=== PATIENT | female | born 1945 | race Caucasian/White ===

== ENCOUNTER 2019-08-07 08:58 | Outpatient (CLI) | payer MEDICARE, MEDICAID, SELFPAY ==
--- NOTE | 2019-08-07 09:05 | MM_ITS ---
WS: [id number] BILATERAL DIGITAL SCREENING MAMMOGRAPHY WITH CAD CLINICAL INFORMATION: SCREENING HISTORY: Screening mammogram. No current complaints. COMPARISON: TECHNIQUE: Bilateral CC and MLO views. FINDINGS: Scattered fibroglandular densities bilaterally. No suspicious focal mass, asymmetry, calcifications, or architectural distortion. No evidence of malignancy. MM/[place] [id number] IMPRESSION: BI-RADS: 1-Negative FOLLOW UP: 1 Year Follow-up Recommend return to annual screening mammography.
== END 2019-08-07 08:59 | disposition home or self-care (01) ==
LOC: RADSHAW 09:03
PROVIDERS: Visit Provider Family Medicine
DX: Z12.31 Encounter for screening mammogram for malignant neoplasm of breast (principal)
CPT/HCPCS: 77067

== ENCOUNTER 2020-09-13 09:06 | Outpatient (CLI) | payer MEDICARE, MEDICAID, SELFPAY ==
--- NOTE | 2020-09-13 09:15 | MM_ITS ---
WS: [id number] Exam: [place] [id number] Date/Time of Exam: 09/13/2020 9:18 AM Reason For Exam: SCREENING VIEWS: MLO and CC views both breasts. Comparison made with prior exam of 04/12/2012. Findings: There was no sign of mass, architectural distortion or suspicious calcification in either breast. Sc attered fibroglandular densities MM/[place] [id number] Impression: BI-RADS: 2-Benign FOLLOW-UP: 1 Year Follow-up This mammogram was also analyzed by the Computer Aided Detection System R2 [employer].
== END 2020-09-13 09:07 | disposition home or self-care (01) ==
LOC: RADSHAW 09:08
PROVIDERS: PCP Family Medicine; Visit Provider Family Medicine
DX: Z12.31 Encounter for screening mammogram for malignant neoplasm of breast (principal)
CPT/HCPCS: 77067

== ENCOUNTER 2020-09-15 10:37 | Emergency (ER) | payer MEDICARE, MEDICAID, SELFPAY ==
[2020-09-15 10:38] VITALS: PULSE 94; RESP 16; BMI 23.2
--- NOTE | 2020-09-15 10:47 | XR_ITS ---
WS: [id number] Exam: XR ribs LT mn 3V w CXR1V [id number] Date/Time of Exam: 09/15/2020 10:55 AM Reason For Exam: fall/rib pain No acute left rib fracture or pneumothorax. No pleural or pulmonary reactive changes. The lungs are b ilaterally clear and fully expanded. Normal cardiomediastinal structures. There is significant bony r esorption and remodeling of the proximal humeri with chronic dislocations. This may be related to rhe umatoid arthritis. XR/XR ribs LT mn 3V w CXR1V [id number] IMPRESSION: 1. No acute rib fracture or pneumothorax.
--- NOTE | 2020-09-15 10:47 | CT_ITS ---
WS: [id number] CT CERVICAL SPINE HISTORY: fall TECHNIQUE: Contiguous 2.5 mm axial imaging performed through the entire cervical spine. Sagittal and coronal reformats also performed. All CT scans at [facility] use at least one of these do se optimization techniques: automated exposure control; mA and/or kV adjustment per patient size (inc ludes targeted exams where dose is matched to clinical indication); or iterative reconstruction. DLP: 383.03 mGy.cm COMPARISON: None available. Increase in the cervical lordosis. C5 anterolisthesis by 4 mm. Advanced degenerative disc disease at C5-6. No acute fracture is identified. The lateral masses are aligned and the odontoid is intact. No cervical spine fractures are identified. Moderate to severe bilateral facet joint arthritis result ing in foraminal narrowing. Most significant stenosis at C5-6 and C6-7. Moderate calcification in the aortic arch into the carotid arteries. There is a nodule in the inferio r RIGHT thyroid extends substernal. Probably due to a goiter. Lung apices are clear. CT/CT cervical spin wo con* [id number] IMPRESSION: 1. No acute cervical spine fracture is identified. 2. C5 anterolisthesis by 4 mm May be degenerative. No facet joint displacement is appreciated. 3. Multilevel bilateral facet joint arthritis. Advanced cervical spondylosis.
--- NOTE | 2020-09-15 10:47 | CT_ITS ---
WS: [id number] CT HEAD NONCONTRAST HISTORY: trauma TECHNIQUE: Contiguous axial imaging performed through the brain in 2.5 mm imaging. Bone and soft tiss ue windows. Sagittal and coronal reformats reviewed. All CT scans at [facility] use at ast one of these dose optimization techniques: automated exposure control; mA and/or kV adjustment pe r patient size (includes targeted exams where dose is matched to clinical indication); or iterative r econstruction. DLP: 765.1 mGy.cm COMPARISON: 05/05/2015 No acute intracranial hemorrhage, midline shift or mass effect. Bilateral frontal lobe atrophy is unchanged. There is moderate chronic microvascular ischemic disease . Bilateral lacunar infarcts in the internal capsules. Ventricles: Normal size with no hydrocephalus. Moderate amount of calcified plaque within the intracranial carotid arteries extending into the proxi mal LEFT MCA. Paranasal sinuses: As visualized are clear. Mastoid air cells: Well pneumatized. Calvarium and scalp: Skull is intact with no soft tissue edema or swelling. CT/CT head wo con* [id number] IMPRESSION: 1. No acute intracranial hemorrhage or edema. 2. Moderate bifrontal lobe atrophy and microvascular disease with lacunar infa rcts as above. No change.
--- NOTE | 2020-09-15 10:48 | ED_ITS ---
HPI - Fall General: Chief Complaint: Fall Stated Complaint: L EYEBROW LAC AFTER FALL Time Seen by Provider: 09/15/20 10:47 Source: patient and EMS Mode of arrival: EMS Limitations: no limitations History of Present Illness: HPI Narrative: Patient is a 75-year-old female who presents to ED today via EMS for evaluation following a fall. Patient tells me she was walking on the concrete sidewalk with bags when she accidentally stumbled and fell. Patient states she struck the left frontal scalp sustaining a laceration near her eyebrow. Patient also complains of some left rib pain. She denies chest pain, shortness of breath, difficulty breathing. No abdominal pain. Patient tells me last tetanus was approximately a month ago. She denies LOC. Denies neck or back pain. She is not having any hip or lower extremity pain. MD complaint: fall Onset (ago): minute(s) Fall from: standing Fall witnessed: yes, by bystander Place fall occurred: street Loss of consciousness: None Prolonged down time: no Symptoms prior to fall: none Context: tripped/slipped (stumbled ) Location of injury: head and chest Associated symptoms-after fall: Reports no associated symptoms and chest pain (chest wall pain; L rib pain); Denies abdominal pain, difficulty walking, headache(s), lightheadedness or neck pain Review of Systems Const: Denies: fever(s) Eyes: Denies: change in vision or blurry vision Card: Reports: chest pain (chest wall pain; L rib pain); Denies: lightheadedness, syncope or pre-syncope Resp: Denies: dyspnea GI: Denies: abdominal pain, nausea or vomiting Musc: Denies: neck pain, back pain, extremity pain, extremity swelling, joint pain or joint swelling Skin/Breast: Reports: other (laceration near L eyebrow) Neuro: Denies: headache(s), numbness in extremities, lack of coordination, difficulty walking or dizziness Physical Exam Const: COMMON NORMALS: no acute distress, average body habitus, patient oriented x3, no limitations, healthy appearing, alert and well nourished GENERAL APPEARANCE: cooperative ORIENTATION/CONSCIOUSNESS: Yes awake, Yes oriented to person, Yes oriented to place and Yes oriented to time HENMT: COMMON NORMALS: normocephalic HEAD & SCALP: normocephalic and other (small 1cm laceration to lateral L eyebrow; bleeding controlled ) FACE & SINUS: normal facial exam Eye: COMMON NORMALS: Equal, round and reactive pupils present and EOMs intact bilaterally GENERAL EYE: appearance normal, both eyes and all related structures PUPIL: Yes Equal, round and reactive pupils present Neck/C-Spine: COMMON NORMALS: full ROM CERVICAL SPINE: Yes cervical ROM normal, No pain with cervical ROM, No Cervical spine tenderness and No Paracervical muscle tenderness Chest: COMMONS NORMALS: normal inspection of the chest CHEST: Yes other (TTP L lower anterior ribs; no crepitus noted) Resp: COMMON NORMALS: normal respiratory effort and clear to auscultation bilaterally AUSCULTATION: clear to auscultation bilaterally OTHER: normally wears 2L O2 for her emphysema Cardio: COMMON NORMALS: regular rate and regular rhythm RATE: regular rate RHYTHM: regular rhythm GI: COMMON NORMALS: Normal to inspection, nondistended, normoactive bowel sounds present, Soft to palpation, non-tender, No hepatosplenomegaly present and no masses PALPATION: Yes Soft to palpation and Yes No hepatosplenomegaly present Back/Pelvis: COMMON NORMALS: thoracic and lumbar spine normal to inspection, no thoracic nor lumbar tenderness and thoraco-lumbar ROM normal Extremity: COMMON NORMALS: normal to inspection and full ROM GENERAL: Yes normal exam except as noted Neuro: YI COMA SCALE: document GCS findings [place] coma scale eye opening: Spontaneous Yi coma scale verbal response: Orientated [place] coma scale motor response: Obey commands Yi coma scale total score: 15 COMMON NORMALS: patient oriented x3, CN's II-XII intact bilaterally, moves all extremities, no focal motor deficits and no sensory deficits noted SENSORIUM/ORIENTATION: Yes alert, Yes oriented to person, Yes oriented to place and Yes oriented to time Skin: TRAUMA: no abrasions and laceration (L eyebrow) Procedures Laceration Laceration 1: Site: face Side (If applicable): left Size (cm): 1.0 Description: linear Depth: simple, single layer Local Anesthetic: lidocaine 2% Amount of anesthesia used (mL): 1.0 Pre-repair: wound explored and irrigated extensively Skin layer closed with: nylon Size (cm): 5-0 Number of sutures: 2 Technique: simple, interrupted Course Vital Signs: Vital signs: Vital Signs Pulse Rate 78 03/24/21 12:00 Respiratory Rate 18 09/15/20 12:43 Blood Pressure 137/49 09/15/20 12:00 Pulse Oximetry 96 09/15/20 12:43 MDM - Fall MDM Narrative: Medical decision making narrative: Patient's imaging is negative. She had no problems with her ambulation trial. We will give her pain medications for her left rib contusions. Small facial laceration was repaired as documented. Tetanus is up-to-date. Return to ED precautions given. Imaging Data^: CT Head: Radiologist's impression: [address] [place] [address] CT Scan Report Signed Patient: Lima Portillo Unit #: [id number] : 1945 Age/Sex: 75 / F ADM Date: 09/15/20 Loc: ER Room/Bed: Attending Dr: Ordering Provider/Ordering MD: Destini Duenas Date of Service: 09/15/20 Procedure(s): CT head wo con* [id number] Accession Number(s): [id number] Report Number: [id number] WS: [id number] CT HEAD NONCONTRAST HISTORY: trauma TECHNIQUE: Contiguous axial imaging performed through the brain in 2.5 mm imaging. Bone and soft tissue windows. Sagittal and coronal reformats reviewed. All CT scans at [facility] use at least one of these dose optimization techniques: automated exposure control; mA and/or kV adjustment per patient size (includes targeted exams where dose is matched to clinical indication); or iterative reconstruction. DLP: 765.1 mGy.cm COMPARISON: 05/05/2015 No acute intracranial hemorrhage, midline shift or mass effect. Bilateral frontal lobe atrophy is unchanged. There is moderate chronic microvascular ischemic disease. Bilateral lacunar infarcts in the internal capsules. Ventricles: Normal size with no hydrocephalus. Moderate amount of calcified plaque within the intracranial carotid arteries extending into the proximal LEFT MCA. Paranasal sinuses: As visualized are clear. Mastoid air cells: Well pneumatized. Calvarium and scalp: Skull is intact with no soft tissue edema or swelling. CT/CT head wo con* [id number] IMPRESSION: 1. No acute intracranial hemorrhage or edema. 2. Moderate bifrontal lobe atrophy and microvascular disease with lacunar infarcts as above. No change. Dictated By: Evelia Law DO Signed By: Evelia Law DO Signed Date/Time: 09/15/20 1140 DD/ 1138 XR L ribs/CXR: Radiologist's impression: [place] [address] XRay Report Signed Patient: Lima PortilloUnit #: [id number] : 1945cct#:[id number] Age/Sex: 75 / FADM Date: 09/15/20 Loc: ERRoom/Bed: Attending Dr: Ordering Provider/Ordering MD: Destini Duenas Date of Service: 09/15/20 Procedure(s): XR ribs LT mn 3V w CXR1V [id number] Accession Number(s): [id number] Report Number: [id number] WS: [id number] Exam: XR ribs LT mn 3V w CXR1V [id number] Date/Time of Exam: 09/15/2020 10:55 AM Reason For Exam: fall/rib pain No acute left rib fracture or pneumothorax. No pleural or pulmonary reactive changes. The lungs are bilaterally clear and fully expanded. Normal cardiomedi astinal structures. There is significant bony resorption and remodeling of the proximal humeri with chronic dislocations. This may be related to rheumatoid arthritis. XR/XR ribs LT mn 3V w CXR1V 69609 IMPRESSION: 1. No acute rib fracture or pneumothorax. Dictated By:Ghanshyam Calles DO Signed By:Finesse Pritchett Date/Time:09/15/20 1144 DD/ 1142 CT cervical : Radiologist's impression: [address] [address] [address] Scan Report Signed Patient: Lima Portillo Unit #: [id number] : 1945 Age/Sex: 75 / F ADM Date: 09/15/20 Loc: ER Room/Bed: Attending Dr: Ordering Provider/Ordering MD: Destini Duenas Date of Service: 09/15/20 Procedure(s): CT cervical spin wo con* [id number] Accession Number(s): [id number] Report Number: [id number] WS: [id number] CT CERVICAL SPINE HISTORY: fall TECHNIQUE: Contiguous 2.5 mm axial imaging performed through the entire cervical spine. Sagittal and coronal reformats also performed. All CT scans at [facility] use at least one of these dose optimization techniques: automated exposure control; mA and/or kV adjustment per patient size (includes targeted exams where dose is matched to clinical indication); or iterative reconstruction. DLP: 383.03 mGy.cm COMPARISON: None available. Increase in the cervical lordosis. C5 anterolisthesis by 4 mm. Advanced degenerative disc disease at C5-6. No acute fracture is identified. The lateral masses are aligned and the odontoid is intact. No cervical spine fractures are identified. Moderate to severe bilateral facet joint arthritis resulting in foraminal narrowing. Most significant stenosis at C5-6 and C6-7. Moderate calcification in the aortic arch into the carotid arteries. There is a nodule in the inferior RIGHT thyroid extends substernal. Probably due to a goiter. Lung apices are clear. CT/CT cervical spin wo con* [id number] IMPRESSION: 1. No acute cervical spine fracture is identified. 2. C5 anterolisthesis by 4 mm May be degenerative. No facet joint displacement is appreciated. 3. Multilevel bilateral facet joint arthritis. Advanced cervical spondylosis. Dictated By: Evelia Law DO Signed By: Evelia Law DO Signed Date/Time: 09/15/20 1145 DD/ 1141 Discharge Plan Discharge Patient Disposition: Home Clinical Impression: Fall from slip, trip, or stumble Qualifiers: Encounter type: initial encounter Qualified Code(s): W01.0XXA - Fall on same level from slipping, tripping and stumbling without subsequent striking against object, initial encounter Eyebrow laceration Qualifiers: Encounter type: initial encounter Laterality: left Qualified Code(s): S01.112A - Laceration without foreign body of left eyelid and periocular area, initial encounter Contusion of rib on left side Qualifiers: Encounter type: initial encounter Qualified Code(s): S20.212A - Contusion of left front wall of thorax, initial encounter Condition: Stable Prescriptions: New hydrocodone-acetaminophen 5-325 mg tablet 1 tab PO Q6H PRN (Reason: pain) Qty: 14 RF: 0 No Action celecoxib 200 mg Capsule 200 mg PO DAILY@08 RF: 0 acetaminophen 325 mg Tablet 650 mg PO BID PRN (Reason: Pain) RF: 0 ipratropium-albuterol 0.5 mg-3 mg(2.5 mg base)/3 mL Solution For Nebulization 3 ml INHALATION Q4H PRN (Reason: Shortness Of Breath) RF: 0 trazodone 50 mg Tablet 50 mg PO DAILY@20 RF: 0 atorvastatin 10 mg Tablet 10 mg PO DAILY@20 RF: 0 Robafen DM 10-100 mg/5 mL Syrup 20 ml PO Q6H PRN (Reason: Cough) RF: 0 Ultram 50 mg Tablet 50 mg PO TID@08,12,20 RF: 0 Protonix 40 mg Tablet,Delayed Release (Dr/Ec) 40 mg PO BID@08,20 RF: 0 lisinopril 10 mg Tablet 10 mg PO DAILY@08 RF: 0 Nicoderm CQ 21 mg/24 hr Patch 24 Hour 1 patch TRANSDERMAL DAILY@08 RF: 0 montelukast 10 mg Tablet 10 mg PO DAILY@08 RF: 0 gabapentin 100 mg Capsule 100 mg PO BID@08,20 RF: 0 Ventolin HFA 90 mcg/actuation Hfa Aerosol Inhaler 2 puff INHALATION Q4H RF: 0 duloxetine 30 mg Capsule,Delayed Release(Dr/Ec) 30 mg PO DAILY@08 RF: 0 Symbicort 80-4.5 mcg/actuation Hfa Aerosol Inhaler 2 puff INHALATION BID@08,20 RF: 0 diclofenac sodium 1 % Gel See Rx Instructions .ROUTE .COMPLEX RF: 0 Discharge Orders: Discharge ED (Routine); Ordered 09/15/20 Ordered By: Destini Duenas Referrals: Jennifer Styles MD [Primary Care Provider] - Patient Instructions: Laceration (ED), Opioid Safety Activity Restrictions/Additional Instructions: [facility] is committed to fighting the nationwide opiate epidemic. We are providing ALL patients with information regarding opiate safety. If you received opiate pain medication during your stay or if you received a prescription for opiate pain medication-please review this handout. If not, you may disregard. Thank you. As we discussed I do not want you taking your tramadol along with the hydrocodone. If you feel you need stronger medication take the hydrocodone but avoid taking them together. Clean the laceration with warm soap and water several times daily. Sutures need to be cut out in 5 days. Return to the emergency department for severe pain, shortness of breath, difficulty breathing or any other concerns you may have. I hope you begin to feel better soon. Coding Level of Care Code ED Dyno Technician for Natalee Fwcolette Exam Comprehensive
[2020-09-15 12:00] VITALS: BP 137/49; PULSE 78; RESP 18; O2SAT 98
[2020-09-15 12:43] VITALS: RESP 18; O2SAT 96
[2020-09-15] MEDS: ondansetron 2 mg/ML SDV 2 mL 4 MG IM (12:43)
[2020-09-15] MEDS: morphine 4 mg/mL SDV 1 mL IM (12:43)
[2020-09-15 13:12] VITALS: BP 136/63; PULSE 79; RESP 20; O2SAT 92
== END 2020-09-15 13:06 | disposition home or self-care (01) ==
PROVIDERS: Emergency Provider Physician Assistant; PCP Family Medicine
DX: S01.112A Laceration without foreign body of left eyelid and periocular area, initial encounter (principal); S20.212A Contusion of left front wall of thorax, initial encounter; W01.10XA Fall on same level from slipping, tripping and stumbling with subsequent striking against unspecified object, initial encounter
CPT/HCPCS: 12011; 70450; 71101; 72125; 96372; 99284; J2270; J2405

== ENCOUNTER 2021-11-09 12:50 | Outpatient (CLI) | payer MEDICARE, MEDICAID, SELFPAY ==
--- NOTE | 2021-11-09 12:59 | MM_ITS ---
WS: [id number] BILATERAL 3D TOMOSYNTHESIS DIGITAL SCREENING MAMMOGRAPHY WITH CAD CLINICAL INFORMATION: SCREENING HISTORY: Screening mammogram. No current complaints. COMPARISON: September 13, 2020 TECHNIQUE: Bilateral CC and MLO views. FINDINGS: Scattered fibroglandular densities bilaterally. Punctate calcifications LEFT breast. Vascular calcifi cation. No suspicious focal mass, asymmetry, calcifications, or architectural distortion. No evidence of malignancy. MM/[place] [id number] IMPRESSION: BI-RADS: 2-Benign FOLLOW UP: 1 Year Follow-up Recommend return to annual screening mammography.
== END 2021-11-09 12:51 | disposition home or self-care (01) ==
LOC: RAD 12:53
PROVIDERS: PCP Family Medicine; Visit Provider Family Medicine
DX: Z12.31 Encounter for screening mammogram for malignant neoplasm of breast (principal)
CPT/HCPCS: 77063; 77067

== ENCOUNTER → 2022-09-05 09:50 | Outpatient (BNVA) | payer MEDICARE, MEDICAID, SELFPAY | PROVIDERS: PCP Family Medicine; Visit Provider Nurse Practitioner Women's Health | DX: N95.0 Postmenopausal bleeding (principal) | CPT/HCPCS: 87624 ==

== ENCOUNTER 2022-11-13 15:01 | Outpatient (CLI) | payer MEDICARE, MEDICAID, SELFPAY ==
--- NOTE | 2022-11-13 15:12 | MM_ITS ---
WS: [id number] BILATERAL 3D TOMOSYNTHESIS DIGITAL SCREENING MAMMOGRAPHY WITH CAD CLINICAL INFORMATION: SCREENING HISTORY: Screening mammogram. No current complaints. COMPARISON: 2021 TECHNIQUE: Bilateral CC and MLO views. FINDINGS: Scattered fibroglandular densities bilaterally. No suspicious focal mass, asymmetry, calcifications, or architectural distortion. No evidence of malignancy. Incidental punctate calcifications. Vascular calcification. MM/[place] [id number] IMPRESSION: BI-RADS: 2-Benign FOLLOW UP: 1 Year Follow-up Recommend return to annual screening mammography.
== END 2022-11-13 15:02 | disposition home or self-care (01) ==
PROVIDERS: PCP Family Medicine; Visit Provider Family Medicine
DX: Z12.31 Encounter for screening mammogram for malignant neoplasm of breast (principal)
CPT/HCPCS: 77063; 77067

== ENCOUNTER 2023-12-07 13:50 | Outpatient (CLI) | payer MEDICARE, MEDICAID, SELFPAY ==
--- NOTE | 2023-12-07 13:59 | MM_ITS ---
WS: [id number] BILATERAL 3D TOMOSYNTHESIS DIGITAL SCREENING MAMMOGRAM WITH CAD CLINICAL INFORMATION: SCREENING HISTORY: Screening mammogram. No current complaints. COMPARISON: 2022 TECHNIQUE: Bilateral CC and MLO views. FINDINGS: Fatty-replaced breasts bilaterally. No suspicious focal mass, asymmetry, calcifications, or implementation architect ural distortion. No evidence of malignancy. A few incidental punctate calcifications LEFT breast are stable. Vascular calcification. MM/[place] [id number] IMPRESSION: BI-RADS: 2-Benign FOLLOW UP: 1 Year Follow-up Recommend return to annual screening mammography.
== END 2023-12-07 13:51 | disposition home or self-care (01) ==
PROVIDERS: PCP Family Medicine; Visit Provider Family Medicine
DX: Z12.31 Encounter for screening mammogram for malignant neoplasm of breast (principal); R92.313 Mammographic fatty tissue density, bilateral breasts; R92.1 Mammographic calcification found on diagnostic imaging of breast
CPT/HCPCS: 77063; 77067

== ENCOUNTER 2024-11-16 06:22 | Emergency (ER) | payer MEDICARE, MEDICAID, SELFPAY ==
--- NOTE | 2024-11-16 06:25 | XRR_ITS ---
PROCEDURE INFORMATION: Exam: XR Left Hip Exam date and time: 11/16/2024 6:31 AM Age: 79 years old Clinical indication: Injury or trauma; Blunt trauma (contusions or hematomas); EMS arrival from [facility] for fall. C/O left hip pain. TECHNIQUE: Imaging protocol: Radiologic exam of the left hip. Views: 2 or 3 views hip with pelvis when performed. COMPARISON: No relevant prior studies available. FINDINGS: Bones/joints: Evaluation for fracture is nondiagnostic because of external artifact directly across the area of interest. There is possibly lucencies of the left greater trochanter. Otherwise, the bones are diffusely demineralized. The hip joint alignments are normal. There is moderately severe narrowing of the bilateral hip joint spaces. No evidence for osteonecrosis or aggressive osteolytic lesion. Soft tissues: Unremarkable. XR/XR hip LT 2-3V wo/w pel* [id number] IMPRESSION: 1. Nondiagnostic exam. There is artifact external to the patient overlying the left hip. Repeat images with removal of the artifact is recommended. 2. Possible left greater trochanter fracture.
--- NOTE | 2024-11-16 06:27 | ED_ITS ---
HPI - Fall General: Chief Complaint: Fall Stated Complaint: FALL Time Seen by Provider: 11/16/24 06:24 Source: patient and EMS Mode of arrival: EMS Limitations: no limitations History of Present Illness: 79-year-old female who is here from [facility] after a fall yesterday. States she fell onto her left hip has been having left hip and buttocks pain since then. States that she has not really been able to bear weight due to the pain rates the pain a 5 out of 10 currently denies any other injuries or fall Associated symptoms-after fall: Denies abdominal pain, chest pain, headache(s) or neck pain Related Data Home Medications ?Medication ?Instructions ?Recorded ?Confirmed acetaminophen 325 mg tablet 650 mg PO BID PRN Pain 09/05/22 albuterol sulfate 90 mcg/actuation 2 puff inhalation Q 4H 09/15/20 09/05/22 aerosol inhaler (Ventolin HFA) atorvastatin 10 mg tablet 10 mg PO DAILY@09/15/20 0 09/05/22 budesonide-formoterol HFA 80 2 puff inhalation BID@09/15/20 09/05/22 mcg-4.5 mcg/actuation aerosol inhaler (Symbicort) celecoxib 200 mg capsule 200 mg PO DAILY@09/15/20 09/05/22 dextromethorphan-guaifenesin 10 20 ml PO Q6H PRN Cough 09/15/20 09/05/22 mg-100 mg/5 mL oral syrup diclofenac sodium 1 % topical gel See Rx Instructions .Route .COMPLEX 09/15/20 09/05/22 duloxetine 30 mg capsule,delayed 30 mg PO DAILY@09/05/22 release gabapentin 100 mg capsule 100 mg PO BID@,09/15/20 09/05/22 ipratropium 0.5 mg-albuterol 3 mg 3 ml inhalation Q4H PRN Shortness 09/15/20 09/05/22 (2.5 mg base)/3 mL nebulization Of Breath soln lisinopril 10 mg tablet 10 mg PO DAILY@09/15/20 0 09/05/22 montelukast 10 mg tablet 10 mg PO DAILY@09/15/20 0 09/05/22 nicotine 21 mg/24 hr daily 1 patch transdermal DAILY@0 8 09/15/20 09/05/22 transdermal patch (Nicoderm CQ) pantoprazole 40 mg tablet,delayed 40 mg PO BID@08,20 0 09/15/20 09/05/22 release (Protonix) tramadol 50 mg tablet (Ultram) 50 mg PO TID@08,12,20 0 09/15/20 09/05/22 trazodone 50 mg tablet 50 mg PO DAILY@20 09/15/20 0 09/05/22 Previous Rx's ?Medication ?Instructions ?Recorded hydrocodone 5 mg-acetaminophen 325 1 tab PO Q6H PRN pa in #14 tabs 09/15/20 mg tablet Allergies Allergy/AdvReac Type Severity Reaction Status Date / Time adhesive tape Allergy ADR-Itching Verified 05/01/24 12:58 Penicillins Allergy ALGY-Swell Verified 09/05/22 09:06 Lip/Tongue/Throat Review of Systems Const: Denies: fever(s), chills, body aches or change in appetite ENMT: Denies: throat pain or dental pain Card: Denies: chest pain Resp: Denies: dyspnea GI: Denies: abdominal pain, nausea, vomiting or diarrhea Musc: Reports: extremity pain; Denies: neck pain or back pain Skin/Breast: Denies: rash Neuro: Denies: headache(s) PFSH ED PFSH: Family History Denies family history of Cervical cancer Ovarian cancer Diabetes Breast cancer Hypertension Uterine cancer Stroke Physical Exam Const: COMMON NORMALS: no acute distress, patient oriented x3 and healthy appearing HENMT: COMMON NORMALS: normocephalic and atraumatic HEAD & SCALP: normocephalic and atraumatic Eye: COMMON NORMALS: conjunctivae normal CONJUNCTIVA: Yes conjunctivae normal Neck/C-Spine: COMMON NORMALS: full ROM and supple Chest: COMMONS NORMALS: normal inspection of the chest Resp: COMMON NORMALS: normal respiratory effort, No retractions, No use of accessory muscles and clear to auscultation bilaterally AUSCULTATION: clear to auscultation bilaterally Cardio: COMMON NORMALS: regular rate, regular rhythm and No murmurs present (Cardio) RATE: regular rate RHYTHM: regular rhythm GI: COMMON NORMALS: Normal to inspection, nondistended, normoactive bowel sounds present, Soft to palpation, non-tender and no masses PALPATION: Yes Soft to palpation Extremity: NARRATIVE EXTREMITY EXAM: Tenderness noted left hip no obvious deformity distal pulses intact Neuro: COMMON NORMALS: patient oriented x3, moves all extremities and no focal motor deficits Psych: COMMON NORMALS: mental status grossly normal, Normal thought process present and cooperative THOUGHT PROCESS: Normal thought process present Skin: COMMON NORMALS: no rashes or lesions noted and no wounds GENERAL SKIN EXAM: no rashes or lesions noted Course Vital Signs: Vital signs: Vital Signs Temperature 98.3 F 11/16/24 06:28 Pulse Rate 70 11/16/24 07:39 Respiratory Rate 18 11/16/24 06:28 Blood Pressure 172/77 11/16/24 07:39 Pulse Oximetry 95 11/16/24 07:39 MDM - Fall Medical Decision Making Patient presents here with a left greater trochanteric fracture from a fall I did speak to orthopedist Dr. Faulkner is going to follow-up patient outpatient she is to be partial weightbearing on that leg return if worsening. Medical Records I reviewed the patient's medical records. Lab Data I reviewed the patient's lab results. Radiology Impressions Hip/Pelvis X-Ray 11/16/24 06:25 IMPRESSION: 1. Nondiagnostic exam. There is artifact external to the patient overlying the left hip. Repeat images with removal of the artifact is recommended. 2. Possible left greater trochanter fracture. Hip CT 11/16/24 06:46 IMPRESSION: 1. Left greater trochanteric fracture. 2. Left hip subcutaneous stranding changes. Finding could represent soft tissue injury. Direct clinical exam is advised. 3. Significant stool is seen at the rectal vault. Clinical correlation to exclude fecal impaction is advised. 4. Sigmoid colon diverticulosis. All radiology interpretation(s) finalized by discharge Discharge Plan Discharge Patient Disposition: Home Clinical Impression: Fall, Closed fracture of greater trochanter of left femur Condition: Stable Prescriptions: No Action hydrocodone-acetaminophen 5-325 mg tablet 1 tab PO Q6H PRN (Reason: pain) Qty: 14 0RF celecoxib 200 mg Capsule 200 mg PO DAILY@08 acetaminophen 325 mg Tablet 650 mg PO BID PRN (Reason: Pain) ipratropium-albuterol 0.5 mg-3 mg(2.5 mg base)/3 mL Solution For Nebulization 3 ml INHALATION Q4H PRN (Reason: Shortness Of Breath) trazodone 50 mg Tablet 50 mg PO DAILY@20 atorvastatin 10 mg Tablet 10 mg PO DAILY@20 Robafen DM 10-100 mg/5 mL Syrup 20 ml PO Q6H PRN (Reason: Cough) Ultram 50 mg Tablet 50 mg PO TID@08,12,20 Protonix 40 mg Tablet,Delayed Release (Dr/Ec) 40 mg PO BID@08,20 lisinopril 10 mg Tablet 10 mg PO DAILY@08 Nicoderm CQ 21 mg/24 hr Patch 24 Hour 1 patch TRANSDERMAL DAILY@08 montelukast 10 mg Tablet 10 mg PO DAILY@08 gabapentin 100 mg Capsule 100 mg PO BID@08,20 Ventolin HFA 90 mcg/actuation Hfa Aerosol Inhaler 2 puff INHALATION Q4H Rx Instructions: @04:00,08:00,12:00,16:00,20:00 duloxetine 30 mg Capsule,Delayed Release(Dr/Ec) 30 mg PO DAILY@08 Symbicort 80-4.5 mcg/actuation Hfa Aerosol Inhaler 2 puff INHALATION BID@08,20 diclofenac sodium 1 % Gel See Rx Instructions .ROUTE .COMPLEX Rx Instructions: apply topically to affected area bid prn Discharge Orders: Discharge ED (Routine); Ordered 11/16/24 Ordered By: Sandie Beth Referrals: Jennifer Styles MD [Primary Care Provider, Family Practice] Jasmyn Gutierrez MD [Physician, Orthopedics] - 4-7 days Discharge Diet: Advance as tolerated Discharge Activity: Limit activity as instructed Patient Instructions: Fall Prevention (ED) Print Language: Japanese Coding Level of Care Code ED [employer] Delivery [employer] for Natalee Zendejas
[2024-11-16 06:28] VITALS: BP 191/87; PULSE 80; RESP 18; TEMP 36.8; O2SAT 94; BMI 16.9
--- NOTE | 2024-11-16 06:34 | PC.NURSE ---
Patient states she fell yesterday late afternoon. She fell from standing position landing on her left side. She states she has not been able to bear weight since falling. She has pain in her left groin region. Distal PMS intact. She denies striking her head, no LOC. Was given Tramadol 50mg PO @ 0545 by Longterm staff. The also sent her morning meds that are due. These meds are pre-packaged and are in the patient room.
--- NOTE | 2024-11-16 06:46 | CTR_ITS ---
PROCEDURE INFORMATION: Exam: CT Left Lower Extremity Without Contrast, Hip Exam date and time: 11/16/2024 6:56 AM Age: 79 years old Clinical indication: Injury or trauma; Blunt trauma; EMS arrival from [facility] for fall. C/O left hip pain. TECHNIQUE: Imaging protocol: CT of the left lower extremity without contrast was performed. Exam focused on the hip. Radiation optimization: All CT scans at this facility use at least one of these dose optimization techniques: automated exposure control; mA and/or kV adjustment per patient size (includes targeted exams where dose is matched to clinical indication); or iterative reconstruction. COMPARISON: CR (PELVIS, ) 11/16/2024 6:31 AM RADIATION DOSE METRICS: Total DLP (mGy-cm): 230.62 FINDINGS: Bones/joints: Left hip subcutaneous stranding changes. There is a fracture of the left greater trochanter. Femoral head is in articulation with the acetabulum. Soft tissues: See Bones/joints finding. Vasculature: Calcified atherosclerotic changes are seen. Intestine: Significant stool is seen at the rectal vault. Sigmoid colon diverticulosis. CT/CT hip LT wo con* [id number] IMPRESSION: 1. Left greater trochanteric fracture. 2. Left hip subcutaneous stranding changes. Finding could represent soft tissue injury. Direct clinical exam is advised. 3. Significant stool is seen at the rectal vault. Clinical correlation to exclude fecal impaction is advised. 4. Sigmoid colon diverticulosis.
--- NOTE | 2024-11-16 07:23 | XRR_ITS ---
PROCEDURE INFORMATION: Exam: XR Chest Exam date and time: 11/16/2024 7:27 AM Age: 79 years old Clinical indication: Injury or trauma; Fall; Blunt trauma (contusions or hematomas) TECHNIQUE: Imaging protocol: Radiologic exam of the chest. Views: 1 view. COMPARISON: CR XR ribs LT mn 3V w CXR1V [id number] 09/15/2020 11:34 AM FINDINGS: Lungs: The pulmonary vessels are within normal limits. The lungs are clear. Pleural spaces: No pneumothorax. Heart/Mediastinum: The cardiomediastinal silhouette is within normal limits. Bones/joints: Bilateral chronic humeral deformity is seen. XR/XR chest 1V portable [id number] IMPRESSION: No acute pulmonary finding.
[2024-11-16 07:39] VITALS: BP 172/77; PULSE 70; O2SAT 95
[2024-11-16 08:48] VITALS: BP 193/81; PULSE 74; O2SAT 98
--- NOTE | 2024-11-17 12:23 | PC.NURSE ---
Sent referral to Ortho.
== END 2024-11-16 08:49 | disposition home or self-care (01) ==
PROVIDERS: Emergency Provider Emergency Medicine; PCP Family Medicine
DX: S72.112A Displaced fracture of greater trochanter of left femur, initial encounter for closed fracture (principal); W19.XXXA Unspecified fall, initial encounter
CPT/HCPCS: 71045; 73502; 73700; 99285

== ENCOUNTER 2024-12-10 09:58 | Outpatient (CLI) | payer MEDICARE, MEDICAID, SELFPAY ==
--- NOTE | 2024-12-10 10:04 | MM_ITS ---
WS: [id number] BILATERAL SCREENING DIGITAL TOMOSYNTHESIS MAMMOGRAM WITH CAD HISTORY: SCREENING COMPARISON: 12/07/2023, 11/13/2022 Bilateral CC and MLO views with tomosynthesis and synthetic mammography submitted. Computer aided detection analyzed. Breast composition: There are scattered areas of fibroglandular density. No suspicious masses, microcalcifications or architectural distortion. Benign calcifications LEFT breast. Pectoralis muscles are not included due to difficulty positioning the patient. MM/MM [facility] tomosynthesis [id number] IMPRESSION: BI-RADS: 2 - Benign. FOLLOW UP: 1 Year Follow-up
== END 2024-12-10 09:59 | disposition home or self-care (01) ==
PROVIDERS: PCP Family Medicine; Visit Provider Internal Medicine
DX: Z12.31 Encounter for screening mammogram for malignant neoplasm of breast (principal)
CPT/HCPCS: 77063; 77067